=== PATIENT | female | born 1945 | race Hispanic/Latino ===

== ENCOUNTER → 2018-07-01 | Outpatient (REF) | payer MEDICARE, MEDICAID ==
[~2018-07-01] MED LIST: B COMPLE2 OR; BL ADULT ASA81 MG PO; CO Q-10200 M1 OR; FLEXERIL OR; LOVASTATIN40 MG PO; METFORMIN500 MG PO; METOPROL TAR25 MG PO; MULTI VIT PO; NEXIUM40 MG PO; NORVASC5 MG PO; SYNTHROID75 MCG PO; ULTRAM50 M1 PO; ULTRAM50 MG OR; VITAMIN D1000 UNIT OR
[2018-07-01 08:31] LABS: HEMATOCRIT 41.5 % (37.0-47.0); HEMOGLOBIN 13.6 g/dl (12.0-16.0); IMMATURE GRANULOCYTES 0.3 % (0.0-5.0); MEAN CELL VOLUME 89.8 fL CALC (80.0-100.0); MEAN CORPUSCULAR HGB 29.4 pG CALC (26.0-32.0); MEAN CORPUSCULAR HGB CONC 32.8 g/L CALC (32.0-36.0); NEUT# 4.25 thou/uL (2.00-7.15); RED BLOOD COUNT 4.62 mill/uL (4.20-5.60)
[2018-07-01 08:39] LABS: URINE BILIRUBIN - DIPSTICK NEGATIVE (NEGATIVE); URINE BLOOD DIPSTICK SMALL (NEGATIVE); URINE COLOR YELLOW; URINE GLUCOSE - DIPSTICK NEGATIVE (NEGATIVE); URINE KETONE NEGATIVE (NEGATIVE); URINE LEUK ESTERASE NEGATIVE (NEGATIVE); URINE NITRITE - DIPSTICK NEGATIVE (Negative); URINE PH 6.5 (4.5-8.0); URINE PROTEIN - DIPSTICK NEGATIVE (NEG-TRACE); URINE UROBILINOGEN - DIPSTICK 0.2 E.U./dL (0.2)
[2018-07-01 08:47] LABS: ALBUMIN 4.2 g/dL (3.2-5.0); ALKALINE PHOSPHATASE 87 u/l (38-126); ANION GAP 13 (6-22 (CALC)); BILIRUBIN, TOTAL 0.5 mg/dL (0.0-1.4); BUN 10 mg/dL (8-23); BUN/CREATININE RATIO 17 (12-20 (CALC)); CALCULATED LDLCHOLESTEROL 98 mg/dL (62-129 (CALC)); CARBON DIOXIDE 29 mmol/l (22-30); CHLORIDE 106 mmol/l (95-108); CHOLESTEROL HDL RATIO 4.9 (<4.4 (CALC)); CREATININE 0.6 mg/dL (0.5-1.0); GFR > 60 ML/MIN (>=60 (CALC)); GFR FOR AFR.AMER. > 60 ML/MIN (>=60 (CALC)); HDL CHOLESTEROL 35 mg/dL (>=40); POTASSIUM 4.3 mmol/l (3.5-5.1); SGOT/AST 21 u/l (9-36); SODIUM 143 mmol/l (137-146); TOTAL CHOLESTEROL 171 mg/dl (0-199); TOTAL PROTEIN 7.4 g/dL (6.3-8.2); TOTAL TRIGLYCERIDES 190 mg/dl (30-149); VLDL CHOLESTROL 38 mg/dl (0-48 (CALC))
[2018-07-01 09:01] LABS: URINE SQUAMOUS EPITHELIAL CELL FEW EPI/hpf (0-FEW); URINE WBC 0-2 WBC/hpf (0-5)
== END | disposition home or self-care (01) ==
LOC: LAB 07:45
PROVIDERS: ATTEND Physician Assistant Medical
DX: E11.9 Type 2 diabetes mellitus without complications (principal)